=== PATIENT | male | born 1945 | race Caucasian/White ===

== ENCOUNTER 2017-10-15 01:34 | Emergency (ER) | payer MEDICARE, BC ==
[~2017-10-15] VITALS: Ht 170.2 cm; Wt 81.8 kg
[2017-10-15 01:38] VITALS: TEMP 98.2
[2017-10-15] MEDS ORDERED: PRIL40 PO (01:41)
[2017-10-15] MEDS ORDERED: MOBIC15 MG PO (01:41)
[2017-10-15] MEDS ORDERED: LIPITOR 40MG TA40 MG PO (01:42)
[2017-10-15] MEDS ORDERED: DEPO-TESTOS200 MG/M1 IM (01:42)
[2017-10-15 02:59] VITALS: BP 145/61; PULSE 64
== END 2017-10-15 03:15 | disposition home or self-care (01) ==
LOC: COL.ER 01:34
DX: S01.311A Laceration without foreign body of right ear, initial encounter (principal); R40.2412 Glasgow coma scale score 13-15, at arrival to emergency department; K21.9 Gastro-esophageal reflux disease without esophagitis; E78.5 Hyperlipidemia, unspecified; Z79.82 Long term (current) use of aspirin; Z88.2 Allergy status to sulfonamides; W18.39XA Other fall on same level, initial encounter; W22.03XA Walked into furniture, initial encounter; Y92.003 Bedroom of unspecified non-institutional (private) residence as the place of occurrence of the external cause

== ENCOUNTER 2017-10-21 09:51 | Emergency (ER) | payer MEDICARE, BC ==
[~2017-10-21 09:51] MED LIST: DEPO-TESTOS200 MG/M1 IM; LIPITOR 40MG TA40 MG PO; MOBIC15 MG PO; PRIL40 PO
[2017-10-21 09:58] VITALS: BP 167/79; PULSE 74; TEMP 98.3
== END 2017-10-21 10:05 | disposition home or self-care (01) ==
LOC: COL.ER 09:51
DX: S01.311D Laceration without foreign body of right ear, subsequent encounter (principal); X58.XXXD Exposure to other specified factors, subsequent encounter

== ENCOUNTER → 2018-01-06 | Outpatient (CLI) | payer MEDICARE, BC | LOC: COL.RAD 08:06 | DX: Z13.6 Encounter for screening for cardiovascular disorders (principal); I70.0 Atherosclerosis of aorta; Z87.891 Personal history of nicotine dependence ==

== ENCOUNTER 2018-01-22 09:49 | Day surgery (SDC) | payer MEDICARE, BC ==
[~2018-01-22] VITALS: Ht 170.2 cm; Wt 86.5 kg
[2018-01-22] MEDS ORDERED: NASACORT OTC NS (10:54)
[2018-01-22] MEDS ORDERED: STOOL SOFTENER100 M2 PO (10:54)
[2018-01-22] MEDS ORDERED: CLARITIN 1010 MG/TAB PO (10:55)
[2018-01-22] MEDS ORDERED: MASON NATURAL1200 MG PO (10:55)
[2018-01-22] MEDS ORDERED: MULTI VITAMINS1 TAB PO (10:55)
[2018-01-22] MEDS ORDERED: ASPIRIN 81M81 MG/TA2 PO (10:56)
[2018-01-22] MEDS ORDERED: VITAMIN C500 MG PO (10:56)
[2018-01-22 12:15] VITALS: BP 131/87; PULSE 64; TEMP 97.5
[2018-01-22 12:30] VITALS: BP 130/80; PULSE 54
[2018-01-22 12:45] VITALS: BP 140/87; PULSE 64
[2018-01-22 13:43] VITALS: BP 141/74; PULSE 60; TEMP 97.6
== END 2018-01-22 12:45 | disposition home or self-care (01) ==
LOC: SDCO 09:49
DX: Z12.11 Encounter for screening for malignant neoplasm of colon (principal); Z85.038 Personal history of other malignant neoplasm of large intestine; D12.8 Benign neoplasm of rectum; Z98.0 Intestinal bypass and anastomosis status
CPT/HCPCS: J2250; J3010; J7030

== ENCOUNTER → 2018-01-26 | Outpatient (CLI) | payer MEDICARE, BC ==
[~2018-01-26] MED LIST changes: +ASPIRIN 81M81 MG/TA2 PO; +CLARITIN 1010 MG/TAB PO; +MASON NATURAL1200 MG PO; +MULTI VITAMINS1 TAB PO; +NASACORT OTC NS; +STOOL SOFTENER100 M2 PO; +VITAMIN C500 MG PO
== END ==
LOC: COL.RAD 01-22 12:45 → COL.VAS 01-22 12:45 → COL.RAD 09:45
DX: E04.1 Nontoxic single thyroid nodule (principal); M54.2 Cervicalgia; G89.29 Other chronic pain

== ENCOUNTER → 2018-05-20 | Outpatient (CLI) | payer MEDICARE, BC | LOC: COL.RAD 14:24 | DX: M99.73 Connective tissue and disc stenosis of intervertebral foramina of lumbar region (principal); M47.26 Other spondylosis with radiculopathy, lumbar region; M48.061 Spinal stenosis, lumbar region without neurogenic claudication ==

== ENCOUNTER → 2019-10-25 | Outpatient (CLI) | payer MEDICARE, BC | LOC: COL.LAB 14:23 | DX: R50.9 Fever, unspecified (principal); R05 Cough; R06.02 Shortness of breath ==

== ENCOUNTER → 2021-09-24 | Outpatient (CLI) | payer MEDICARE | LOC: COL.RAD 09:24 | DX: K11.7 Disturbances of salivary secretion (principal) ==

== ENCOUNTER 2023-05-23 15:34 | Emergency (ER) | payer MEDICARE ==
[~2023-05-23] VITALS: Ht 170.2 cm; Wt 79.5 kg
[2023-05-23 16:09] LABS: BASO # 0.1 K/mm3 (0.0-0.2); BASO % 0.3 % (0.0-2.0); EOS # 0.2 K/mm3 (0.0-0.7); EOS % 1.2 % (0.0-4.0); GRAN # 11.9 K/mm3 (1.4-6.5); GRAN % 77.8 % (42.2-75.2); HEMATOCRIT 40.1 % (42.0-52.0); HEMOGLOBIN 13.1 g/dl (13.5-18.0); LYMPH # 2.2 K/mm3 (1.2-3.4); LYMPH % 14.2 % (20.0-51.0); MEAN CELL VOLUME 88 fl (80.0-100.0); MEAN CORPUSCULAR HEMOGLOBIN 29 pg (27-31); MEAN CORPUSCULAR HGB CONC 33 g/dl (33.0-37.0); MEAN PLATELET VOLUME 10.7 fl (7.4-10.4); MONO % 6.2 % (1.7-9.3); PLATELET COUNT 195 K/mm3 (130-400); RED BLOOD COUNT 4.55 M/mm3 (4.20-5.60); REDCELL DISTRIBUTION WIDTH-CV 14.6 % (11.5-14.5)
[2023-05-23 16:23] LABS: ALBUMIN 3.2 gm/dL (3.4-4.8); BILIRUBIN,TOTAL 0.5 mg/dL (0.2-1.2); CALCIUM 8.8 mg/dL (8.4-10.2); CREATININE, serum 1.3 mg/dL (0.72-1.25); POTASSIUM 4.1 mmol/L (3.5-4.5); TOTAL PROTEIN 6.3 gm/dL (6.2-8.1)
[2023-05-23] MEDS ORDERED: AMOXICILLIN 8751 TAB PO (17:16)
[2023-05-23] MEDS ORDERED: ZITHROMAX Z PA250 MG PO (17:16)
[2023-05-23 18:02] VITALS: BP 143/79; PULSE 63; TEMP 97.8
== END 2023-05-23 18:02 | disposition home or self-care (01) ==
LOC: COL.ER 15:34
PROVIDERS: Family Medicine
DX: J20.9 Acute bronchitis, unspecified (principal); J98.11 Atelectasis; D64.9 Anemia, unspecified; Z88.2 Allergy status to sulfonamides
CPT/HCPCS: J0696; J7120